=== PATIENT | male | born 1975 | race Hispanic/Latino ===

== ENCOUNTER 2025-06-21 02:07 | Emergency (ER) | payer BC, SELFPAY ==
[2025-06-21 02:13] VITALS: BP 165/101
--- NOTE | 2025-06-21 02:40 | ED.GENMED ---
History of Present Illness
General
Chief Complaint: Back Pain
Time Seen by Provider: 06/21/25 02:35
History of Present Illness
History of Present Illness:
50-year-old male presents to the emergency department for evaluation of right low back pain for the past 2 to 3 days. Has prior history of L4 and L5 compression fracture with disc herniation after an accident 15+ years ago. He has taken naproxen
today with minimal relief. Denies any fever, chills, sweats, bladder incontinence, lower extremity paresthesias. He is comfortable lying flat but significantly worse when upright.
Review of Systems
Review of Systems
Allergies reviewed?: Yes
All Other Systems: ROS reviewed and negative except as documented in HPI and ROS
Phy Exam
Physical Exam
Physical Exam:
GEN: Well appearing, NAD, WDWN
HEENT: Oral mucosa moist, no scleral icterus
Cardiac: Regular rate
Lung: No respiratory distress, no tachypnea
MSK: No gross deformity or injuries. Grossly nontender the spinous processes paraspinous musculature in the lumbar spine. Bilateral hip and lower extremity range of motion is normal in all siddiqui, negative straight leg raise bilaterally
Skin: Good color, no pallor or jaundice, no rashes
Neuro: AO x3, moves all extremities freely
Psych: Calm, cooperative
Course
Orders/Labs/Results
Orders:
Orders
06/21/25 02:40
Diazepam [Valium] 5 mg PO NOW STA
Ketorolac [Toradol] 30 mg IM NOW STA
Vital Signs
Initial and Last Documented VS:
Initial Vital Signs
Temp Pulse Resp BP Pulse Ox
98.2 F 60 16 165/101 99
06/21/25 02:13 06/21/25 02:13 06/21/25 02:13 06/21/25 02:13 06/21/25 02:13
Last Documented Vital Signs
Temp Pulse Resp BP Pulse Ox
98.2 F 58 14 141/83 99
06/21/25 02:13 06/21/25 03:10 06/21/25 03:10 06/21/25 03:10 06/21/25 03:10
MDM/Problems Addressed
MDM/Problems Addressed:
Patient has no radiculopathy and no red flag symptoms warranting urgent MRI. No systemic symptoms concerning for infectious etiology. Treated with NSAIDs and muscle relaxants with significant improvement. Discussed supportive care
*Pulse Oximetry
SaO2: 99
Oxygen Mode of Delivery: Room air
Patient hypoxic: no
*Critical Care Note
Total Time (30-74mins, 75-104mins- exclusive of procedures): Not Applicable
ED Attending Note
-
Portions of this chart may have been created with voice recognition software.� Occasional wrong word or��sound alike� substitutions may have occurred due to the inherent limitations of voice recognition software.
Discharge Plan
Departure
Patient Disposition: Home (Routine Discharge)
Date of Disposition: 06/21/25
Time of Disposition: 04:16
Patient with high blood pressure during this ER visit?: No
Discharge Problem:
Lumbar strain
Instructions: Low Back Pain (DC)
Prescriptions:
New
celecoxib 200 mg capsule
200 mg PO BID Qty: 20 0RF
methocarbamol 750 mg tablet
750 - 1,500 mg PO TID PRN (Reason: pain) Qty: 20 0RF
No Action
naproxen 500 mg Tablet
500 mg PO BID PRN (Reason: back pain)
atorvastatin
PO DAILY
Referrals:
NONE,* [Family Provider, Internal Medicine]
Activity Restrictions/Additional Instructions:
Do not take naproxen while using the celecoxib
Interventions
Interventions:
*General Assessment Last Done: 06/21/25 03:10
*Neglect/Abuse Screening Last Done: 06/21/25 02:13
*ED COVID-19 Vaccine History Last Done: 06/21/25 02:13
*ED Influenza Vaccine History Last Done: 06/21/25 02:13
[facility] Risk Assessment Tool Last Done: 06/21/25 03:10
*Risk Screen - Suicide (C-SSRS) Last Done: 06/21/25 03:10
*Nursing Disposition Last Done: 06/21/25 04:25
ED-Musculoskeletal Assessment Last Done: 06/21/25 03:10
Discharge Date and Time
Discharge Date/Time: 06/21/25 04:25
Print Language: SYRIAN
[2025-06-21 03:10] VITALS: BP 141/83
[2025-06-21] MEDS: TORADOL 30 MG IM (03:11)
[2025-06-21] MEDS: VALIUM 5 MG PO (03:11)
== END 2025-06-21 04:25 | disposition home or self-care (01) ==
LOC: EMR 02:07
PROVIDERS: EMERGENCY PHYSICIAN Student in an Organized Health Care Education/Training Program
DX: S39.012A Strain of muscle, fascia and tendon of lower back, initial encounter (principal); X58.XXXA Exposure to other specified factors, initial encounter
CPT/HCPCS: 99284; 96372